=== PATIENT | male | born 1960 | race Caucasian/White ===

== ENCOUNTER 2021-05-19 10:46 | Inpatient (IN) ==
[~2021-05-19 10:46] MED LIST: ATROPINE 1 MG/10 ML SYRINGE ONE
[2021-05-19] MEDS ORDERED: SODIUM CHLORIDE 0.9% 1,000 ML IV STA (10:48)
[2021-05-19] MEDS ORDERED: EPINEPHrine 1 MG/10 ML SYRINGE IV STA (10:52)
[2021-05-19] MEDS ORDERED: ETOMIDATE 20 MG/10 ML VIAL IV STA (10:54)
[2021-05-19] MEDS ORDERED: ETOMIDATE 20 MG/10 ML VIAL IV ONE (10:54)
[2021-05-19] MEDS ORDERED: ROCURONIUM 100 MG/10 ML VIAL IV STA (10:54)
[2021-05-19] MEDS ORDERED: ROCURONIUM 100 MG/10 ML VIAL IV ONE (10:55)
[2021-05-19 11:14] LABS: Hematocrit 32.2 VOL% (42.0-52.0); Lymphocytes # 0.1 10*3/uL (1.4-4.0); Lymphocytes % 2.1 % (21.2-54.2); Mean Corpuscular HGB Conc 34.2 GM/DL (32-36); Mean Platelet Volume 13.2 FL (9.6-12.0); Monocytes % 2.9 % (1.7-12.7); NRBC # 0.03 10*3/uL; Platelet Count 57 T/CUMM (130-400); Red Blood Count 3.54 MC/CUMM (3.8-5.5); Red Cell Distribution Width 14.7 % (9.3-17.3); White Blood Count 2.8 T/CUMM (4-12)
[2021-05-19] MEDS ORDERED: SODIUM BICARBONATE 50 MEQ/50 ML VIAL IV STA ×2 (11:14→11:35)
[2021-05-19 11:21] LABS: ABG Base Excess -2.3 MMOL/L (-2.5-2.5); ABG HCO3 22.3 MMOL/L (20-26); ABG Oxygen Saturation 86.8 % (95-100); ABG PCO2 66.2 MM HG (35-48); ABG PH 7.218 (7.35-7.45); ABG PO2 68.3 MM HG (80-95); ABG TCO2 24.9 MMOL/L (23-27)
[2021-05-19] MEDS ORDERED: NOREPINEPHRINE 4 MG/4 ML VIAL IV ONE ×2 (11:22→15:15)
[2021-05-19 11:26] LABS: INR 1.2; PT Patient Result 13.1 SECS (10.5-12.0); Partial Thromboplastin Time 39.4 SECS (23.8-32.1)
[2021-05-19] MEDS: NOREPINEPHRINE 8 MG in SODIUM CHLORIDE 0.9% 242 ML IV PRN (11:30)
[2021-05-19] MEDS ORDERED: ATROPINE 1 MG/10 ML SYRINGE IV STA (11:37)
[2021-05-19 11:39] LABS: Albumin 2.7 G/DL (3.4-5.0); Bilirubin,Total 0.4 MG/DL (0.20-1.00); Calcium 8.6 MG/DL (8.5-10.1); Osmolality,Calculated 261.4 MOS/KG (273-304); Potassium 3.9 MMOL/L (3.5-5.1); Thyroid Stimulating Hormone 1.03 uIU/ml (0.358-3.74); Total Protein 5.8 G/DL (6.4-8.2)
[2021-05-19 11:51] LABS: Band Neutrophils 6 % (0-10); Lymphocytes 2 % (20-55); Platelet Estimate Decreased; Schistocytes Slight; Segmented Neutrophils 86 % (50-85); Total Cells Counted 100
[2021-05-19 11:52] LABS: Acanthocytes Few; Polychromasia Slight
[2021-05-19 11:53] LABS: Anisocytosis 1+
[2021-05-19] MEDS ORDERED: ALBUTEROL 2.5 MG/3 ML NEB RESP TX PRN (12:02)
[2021-05-19] MEDS ORDERED: NOREPINEPHRINE 8 MG in SODIUM CHLORIDE 0.9% 242 ML IV PRN (12:03)
[2021-05-19] MEDS ORDERED: MORPHINE 2 MG/1 ML SYRINGE IV PRN (12:03)
[2021-05-19] MEDS ORDERED: cefTRIAXone 1,000 MG in SODIUM CHLORIDE 0.9% 100 ML IV STA (12:05)
[2021-05-19] MEDS ORDERED: AZITHROMYCIN INJ 500 MG in SODIUM CHLORIDE 0.9% 250 ML IV STA (12:05)
[2021-05-19] MEDS ORDERED: methylPREDNISolone SOD SUC 125 MG/2 ML VIAL IV STA (12:05)
[2021-05-19 12:07] LABS: Bilirubin,Urine Negative (Negative); Blood, Urine Negative (Negative); Glucose,Urine (UA) Negative (Negative); Ketones,Urine 5 mg/dL (Negative); Mucus,Urine Occasional /LPF (Occasional); Nitrite,Urine Negative (Negative); Protein,Urine Negative; RBC,Urine 2 /HPF (0-4); Urine Appearance CLEAR (Clear); Urine Color Yellow (Yellow); Urine Specific Gravity 1.018 (1.001-1.035); Urine Urobilinogen < 2.0 EU/DL (0.2-1.0)
[2021-05-19] MEDS: ENOXAPARIN 40 MG/0.4 ML SYRINGE SUBCUT SCH (12:30)
[2021-05-19 12:44] LABS: Barbiturates Screen,Urine Negative (Negative); Benzodiazepines Screen,Urine Negative (Negative); Cannabinoid Screen,Urine Negative (Negative); Opiate Screen,Urine Negative (Negative); Phencyclidine Screen,Urine Negative (Negative)
[2021-05-19] MEDS: SODIUM CHLORIDE 0.9% 1,000 ML IV SCH ×2 (12:50→19:01)
[2021-05-19 14:40] LABS: ABG Base Excess 1.4 MMOL/L (-2.5-2.5); ABG HCO3 25.5 MMOL/L (20-26); ABG Oxygen Saturation 89.2 % (95-100); ABG PCO2 47.2 MM HG (35-48); ABG PH 7.369 (7.35-7.45); ABG PO2 61.9 MM HG (80-95); ABG TCO2 24.7 MMOL/L (23-27); Allen Test Positive; Pt O2 Delivery Device Ventilator
[2021-05-19] MEDS ORDERED: INFLUENZA VIRUS VACCINE 0.5 ML SYRINGE IM ONE (14:53)
[2021-05-19] MEDS: NOREPINEPHRINE 16 MG in SODIUM CHLORIDE 0.9% 234 ML IV PRN ×2 (15:25→20:10)
[2021-05-19] MEDS: CLINDAMYCIN INJ 600 MG/50 ML PREMIX IV SCH (16:04)
[2021-05-19] MEDS ORDERED: SODIUM CHLORIDE 0.9% 500 ML IV ONE (18:21)
[2021-05-19] MEDS ORDERED: VASOPRESSIN 100 UNITS in SODIUM CHLORIDE 0.9% 95 ML IV PRN (18:21)
[2021-05-19] MEDS: ALBUTEROL/IPRATROPIUM 3 ML NEB RESP TX SCH ×2 (18:41→23:53)
[2021-05-19] MEDS: methylPREDNISolone SOD SUC 40 MG/1 ML VIAL IV SCH (21:23)
[2021-05-20] MEDS ORDERED: SODIUM CHLORIDE 0.9% 500 ML IV ONE (00:35)
[2021-05-20] MEDS: CLINDAMYCIN INJ 600 MG/50 ML PREMIX IV SCH ×3 (00:42→15:57)
[2021-05-20] MEDS: NOREPINEPHRINE 16 MG in SODIUM CHLORIDE 0.9% 234 ML IV PRN ×6 (00:43→23:14)
[2021-05-20] MEDS: ALBUTEROL/IPRATROPIUM 3 ML NEB RESP TX SCH ×4 (01:00→19:00)
[2021-05-20] MEDS: SODIUM CHLORIDE 0.9% 1,000 ML IV SCH ×2 (03:34→12:05)
[2021-05-20 03:41] LABS: ABG Base Excess 4.5 MMOL/L (-2.5-2.5); ABG HCO3 28.5 MMOL/L (20-26); ABG Oxygen Saturation 99.5 % (95-100); ABG PH 7.463 (7.35-7.45); ABG TCO2 25.7 MMOL/L (23-27)
[2021-05-20] MEDS: methylPREDNISolone SOD SUC 40 MG/1 ML VIAL IV SCH ×3 (04:14→20:53)
[2021-05-20 04:43] LABS: Albumin 2.1 G/DL (3.4-5.0); Bilirubin,Total 0.4 MG/DL (0.20-1.00); Calcium 7.3 MG/DL (8.5-10.1); Osmolality,Calculated 261.4 MOS/KG (273-304); Potassium 5.2 MMOL/L (3.5-5.1); Total Protein 5.2 G/DL (6.4-8.2)
[2021-05-20] MEDS ORDERED: DEXTROSE 50% 25 GM/50 ML SYRINGE IV ONE (04:46)
[2021-05-20] MEDS: DEXTROSE 50% 25 GM/50 ML SYRINGE IV PRN ×2 (04:47→06:30)
[2021-05-20 04:56] LABS: Basophils % 0.3 % (0.0-0.8); Hematocrit 29.4 VOL% (42.0-52.0); Hemoglobin 10.4 GM/DL (14.0-18.0); Immature Granulocytes % 0.4 %; Immature Granulocytes Absolute 0.04 #; Lymphocytes % 0.2 % (21.2-54.2); Mean Corpuscular HGB Conc 35.4 GM/DL (32-36); Mean Corpuscular Volume 90.5 FL (87-102); Mean Platelet Volume 13.4 FL (9.6-12.0); Monocytes % 2.5 % (1.7-12.7); NRBC # 0.07 10*3/uL; Neutrophils % 96.6 % (38.7-73.9); Platelet Count 56 T/CUMM (130-400); Red Blood Count 3.25 MC/CUMM (3.8-5.5); Red Cell Distribution Width 14.9 % (9.3-17.3); White Blood Count 9.6 T/CUMM (4-12)
[2021-05-20] MEDS ORDERED: GLUCAGON 1 MG VIAL IM PRN (05:02)
[2021-05-20] MEDS ORDERED: MAGNESIUM SULF RIDER 4 GM/100 ML PREMIX IV PRN (05:04)
[2021-05-20] MEDS ORDERED: MAGNESIUM SULF RIDER 2 GM/50 ML PREMIX IV PRN (05:04)
[2021-05-20] MEDS: MIDAZOLAM 100 MG in SODIUM CHLORIDE 0.9% 80 ML IV PRN (05:14)
[2021-05-20 05:30] LABS: Band Neutrophils 4 % (0-10); Lymphocytes 7 % (20-55); Nucleated Red Blood Cells 3 (0-5); Segmented Neutrophils 82 % (50-85); Total Cells Counted 100
[2021-05-20 05:31] LABS: Platelet Estimate Decreased
[2021-05-20] MEDS ORDERED: SODIUM CHLORIDE 0.9% 1,000 ML IV ONE (07:17)
[2021-05-20] MEDS ORDERED: SODIUM POLYSTYRENE SULFATE 15 GM/60 ML BOTTLE PO ONE (08:06)
[2021-05-20] MEDS ORDERED: PANTOPRAZOLE 40 MG TABLET PO SCH (09:00)
[2021-05-20] MEDS ORDERED: PANTOPRAZOLE 40 MG VIAL IV SCH (09:30)
[2021-05-20] MEDS: ENOXAPARIN 40 MG/0.4 ML SYRINGE SUBCUT SCH (12:04)
[2021-05-20] MEDS: AZITHROMYCIN INJ 250 MG in SODIUM CHLORIDE 0.9% 250 ML IV SCH (12:04)
[2021-05-20] MEDS: cefTRIAXone 1,000 MG in SODIUM CHLORIDE 0.9% 100 ML IV SCH (13:00)
[2021-05-20] MEDS: DEXTROSE 5% NACL 0.9% 1,000 ML IV SCH ×2 (13:52→21:24)
[2021-05-20 15:00] LABS: Calcium 7.3 MG/DL (8.5-10.1); Osmolality,Calculated 268.9 MOS/KG (273-304); Potassium 4.9 MMOL/L (3.5-5.1)
[2021-05-20] MEDS: DOCUSATE SODIUM 100 MG/10 ML UDCUP PO SCH (20:49)
[2021-05-21] MEDS: CLINDAMYCIN INJ 600 MG/50 ML PREMIX IV SCH ×2 (00:18→07:56)
[2021-05-21] MEDS: ALBUTEROL/IPRATROPIUM 3 ML NEB RESP TX SCH ×4 (01:01→19:00)
[2021-05-21 03:49] LABS: Basophils % 0.1 % (0.0-0.8); Hematocrit 24.2 VOL% (42.0-52.0); Hemoglobin 8.3 GM/DL (14.0-18.0); Immature Granulocytes % 1.4 %; Lymphocytes % 0.2 % (21.2-54.2); Mean Corpuscular HGB Conc 34.3 GM/DL (32-36); Mean Corpuscular Volume 91.3 FL (87-102); Mean Platelet Volume 13.2 FL (9.6-12.0); NRBC # 0.11 10*3/uL; Neutrophils % 96.3 % (38.7-73.9); Red Blood Count 2.65 MC/CUMM (3.8-5.5); Red Cell Distribution Width 15.9 % (9.3-17.3); White Blood Count 20.8 T/CUMM (4-12)
[2021-05-21 03:51] LABS: Platelet Count 37 T/CUMM (130-400)
[2021-05-21] MEDS: methylPREDNISolone SOD SUC 40 MG/1 ML VIAL IV SCH (03:55)
[2021-05-21 04:08] LABS: Band Neutrophils 1 % (0-10); Lymphocytes 1 % (20-55); Nucleated Red Blood Cells 2 (0-5); Platelet Estimate Decreased; Segmented Neutrophils 95 % (50-85); Total Cells Counted 100
[2021-05-21 04:09] LABS: Albumin 1.8 G/DL (3.4-5.0); Bilirubin,Total 0.4 MG/DL (0.20-1.00); Calcium 7.4 MG/DL (8.5-10.1); Osmolality,Calculated 272.8 MOS/KG (273-304); Potassium 4.2 MMOL/L (3.5-5.1); Total Protein 5.1 G/DL (6.4-8.2)
[2021-05-21 04:13] LABS: ABG HCO3 24.2 MMOL/L (20-26); ABG Oxygen Saturation 98.1 % (95-100); ABG PCO2 28.8 MM HG (35-48); ABG PH 7.542 (7.35-7.45); ABG PO2 120.2 MM HG (80-95); ABG TCO2 25.1 MMOL/L (23-27)
[2021-05-21] MEDS: DEXTROSE 5% NACL 0.9% 1,000 ML IV SCH ×3 (05:50→21:54)
[2021-05-21] MEDS: LEVOTHYROXINE 25 MCG TABLET PO SCH (05:52)
[2021-05-21] MEDS: PANTOPRAZOLE 40 MG VIAL IV SCH ×3 (07:55→20:35)
[2021-05-21] MEDS: POLYETHYLENE GLYCOL POWDER 17 GM PACK PO SCH (08:14)
[2021-05-21] MEDS ORDERED: SKIN HEALING OINT (AQUAPHOR) 50 GM TUBE TOP PRN (09:12)
[2021-05-21] MEDS: NOREPINEPHRINE 16 MG in SODIUM CHLORIDE 0.9% 234 ML IV PRN (09:42)
[2021-05-21 10:53] LABS: HIV Antigen/Antibody Result Nonreactive (Nonreactive)
[2021-05-21] MEDS: VANCOMYCIN INJ 1,000 MG in SODIUM CHLORIDE 0.9% 250 ML IV SCH ×2 (11:00→22:11)
[2021-05-21] MEDS: AZITHROMYCIN INJ 250 MG in SODIUM CHLORIDE 0.9% 250 ML IV SCH (12:29)
[2021-05-21] MEDS: cefTRIAXone 1,000 MG in SODIUM CHLORIDE 0.9% 100 ML IV SCH (12:29)
[2021-05-21 12:53] LABS: ABG HCO3 25.3 MMOL/L (20-26); ABG Oxygen Saturation 96.5 % (95-100); ABG PCO2 34.7 MM HG (35-48); ABG PH 7.459 (7.35-7.45); ABG PO2 85.2 MM HG (80-95); ABG TCO2 22.9 MMOL/L (23-27); Pt O2 Delivery Device Ventilator
[2021-05-21] MEDS: POLYVINYL ALCOHOL 1.4% OPH SOLN 15 ML BOTTLE BOTH EYES PRN (13:13)
[2021-05-21] MEDS ORDERED: SODIUM CHLORIDE 0.9% 500 ML IV ONE (14:18)
[2021-05-21] MEDS ORDERED: ALBUMIN 5% 25 GM/500 ML VIAL IV ONE (14:18)
[2021-05-21 17:04] LABS: Basophils % 0.1 % (0.0-0.8); Hematocrit 19.7 VOL% (42.0-52.0); Hemoglobin 6.7 GM/DL (14.0-18.0); Immature Granulocytes % 0.8 %; Immature Granulocytes Absolute 0.12 #; Lymphocytes # 0.1 10*3/uL (1.4-4.0); Lymphocytes % 0.5 % (21.2-54.2); Mean Corpuscular Volume 93.4 FL (87-102); Mean Platelet Volume 13.6 FL (9.6-12.0); NRBC # 0.06 10*3/uL; Neutrophils % 96.6 % (38.7-73.9); Red Blood Count 2.11 MC/CUMM (3.8-5.5); Red Cell Distribution Width 15.8 % (9.3-17.3); White Blood Count 15.5 T/CUMM (4-12)
[2021-05-21 17:07] LABS: Platelet Count 17 T/CUMM (130-400)
[2021-05-21] MEDS ORDERED: SODIUM CHLORIDE 0.9% 1,000 ML IV PRN ×2 (17:10→17:12)
[2021-05-21 17:44] LABS: Band Neutrophils 18 % (0-10); Lymphocytes 4 % (20-55); Metamyelocytes 2 %; Platelet Estimate Decreased; Segmented Neutrophils 74 % (50-85); Total Cells Counted 100
[2021-05-21 17:48] LABS: PT Patient Result 11.4 SECS (10.5-12.0)
[2021-05-21] MEDS: DOCUSATE SODIUM 100 MG/10 ML UDCUP PO SCH (20:36)
[2021-05-22] MEDS: ALBUTEROL/IPRATROPIUM 3 ML NEB RESP TX SCH ×4 (01:00→19:00)
[2021-05-22 03:49] LABS: Basophils % 0.2 % (0.0-0.8); Hematocrit 25.7 VOL% (42.0-52.0); Hemoglobin 8.7 GM/DL (14.0-18.0); Immature Granulocytes % 0.6 %; Immature Granulocytes Absolute 0.09 #; Lymphocytes # 0.1 10*3/uL (1.4-4.0); Lymphocytes % 0.8 % (21.2-54.2); Mean Corpuscular HGB Conc 33.9 GM/DL (32-36); Mean Corpuscular Volume 91.5 FL (87-102); Mean Platelet Volume 12.5 FL (9.6-12.0); Monocytes % 2.3 % (1.7-12.7); NRBC # 0.06 10*3/uL; Neutrophils % 96.1 % (38.7-73.9); Red Blood Count 2.81 MC/CUMM (3.8-5.5); Red Cell Distribution Width 16.5 % (9.3-17.3); White Blood Count 14.5 T/CUMM (4-12)
[2021-05-22 03:51] LABS: ABG Base Excess 0.4 MMOL/L (-2.5-2.5); ABG HCO3 24.2 MMOL/L (20-26); ABG Oxygen Saturation 85.6 % (95-100); ABG PCO2 35.8 MM HG (35-48); ABG PH 7.448 (7.35-7.45); ABG PO2 50.8 MM HG (80-95); ABG TCO2 25.3 MMOL/L (23-27); Platelet Count 31 T/CUMM (130-400)
[2021-05-22 04:06] LABS: Bilirubin,Total 0.5 MG/DL (0.20-1.00); Calcium 7.9 MG/DL (8.5-10.1); Osmolality,Calculated 277.1 MOS/KG (273-304); Potassium 3.5 MMOL/L (3.5-5.1); Total Protein 5.1 G/DL (6.4-8.2)
[2021-05-22 04:14] LABS: Lymphocytes 2 % (20-55); Segmented Neutrophils 93 % (50-85); Total Cells Counted 100
[2021-05-22 04:15] LABS: Hypochromasia 2+; Platelet Estimate Decreased
[2021-05-22 04:22] LABS: ABG Base Excess 0.4 MMOL/L (-2.5-2.5); ABG HCO3 24.8 MMOL/L (20-26); ABG Oxygen Saturation 99.5 % (95-100); ABG PH 7.456 (7.35-7.45); ABG TCO2 21.9 MMOL/L (23-27)
[2021-05-22] MEDS: MIDAZOLAM 100 MG in SODIUM CHLORIDE 0.9% 80 ML IV PRN (05:18)
[2021-05-22] MEDS: DEXTROSE 5% NACL 0.9% 1,000 ML IV SCH ×4 (05:23→16:44)
[2021-05-22] MEDS: POTASSIUM CHLORIDE RIDER 20 MEQ/100 ML PREMIX IV PRN (05:57)
[2021-05-22] MEDS: LEVOTHYROXINE 25 MCG TABLET PO SCH (06:00)
[2021-05-22] MEDS: POTASSIUM CHLORIDE RIDER 10 MEQ/100 ML PREMIX IV PRN (08:20)
[2021-05-22] MEDS: POLYETHYLENE GLYCOL POWDER 17 GM PACK PO SCH (09:37)
[2021-05-22] MEDS: PANTOPRAZOLE 40 MG VIAL IV SCH ×2 (09:37→21:20)
[2021-05-22] MEDS: VANCOMYCIN INJ 1,000 MG in SODIUM CHLORIDE 0.9% 250 ML IV SCH (11:20)
[2021-05-22] MEDS: LACTULOSE 20 GM/30 ML UDCUP PO SCH ×6 (11:20→21:20)
[2021-05-22 11:47] LABS: Basophils % 0.1 % (0.0-0.8); Hematocrit 24.7 VOL% (42.0-52.0); Hemoglobin 8.1 GM/DL (14.0-18.0); Immature Granulocytes % 0.6 %; Immature Granulocytes Absolute 0.08 #; Lymphocytes # 0.2 10*3/uL (1.4-4.0); Lymphocytes % 1.8 % (21.2-54.2); Mean Corpuscular HGB Conc 32.8 GM/DL (32-36); Mean Corpuscular Volume 91.8 FL (87-102); Mean Platelet Volume 12.5 FL (9.6-12.0); Monocytes % 2.5 % (1.7-12.7); NRBC # 0.03 10*3/uL; Red Blood Count 2.69 MC/CUMM (3.8-5.5); Red Cell Distribution Width 16.6 % (9.3-17.3)
[2021-05-22 11:49] LABS: Platelet Count 29 T/CUMM (130-400)
[2021-05-22 12:03] LABS: Hepatitis B Core IgM Quant 0.19 Index; Hepatitis B Surface Ag Quant < 0.10 Index; Hepatitis B Surface Ag Result Non-Reactive (NonReactive); Hepatitis C Virus Ab Quant > 11.00 Index
[2021-05-22 12:04] LABS: Hepatitis C Virus Ab Result Reactive (NonReactive)
[2021-05-22 12:07] LABS: Band Neutrophils 32 % (0-10); Folate 9.07 NG/ML (5.38-24.0); Lymphocytes 2 % (20-55); Platelet Estimate Decreased; Segmented Neutrophils 66 % (50-85); Total Cells Counted 100
[2021-05-22 12:08] LABS: Anisocytosis 2+; Burr Cells Few
[2021-05-22 12:09] LABS: Macrocytosis Slight
[2021-05-22] MEDS: cefTRIAXone 1,000 MG in SODIUM CHLORIDE 0.9% 100 ML IV SCH (12:20)
[2021-05-22] MEDS: AZITHROMYCIN INJ 250 MG in SODIUM CHLORIDE 0.9% 250 ML IV SCH (14:08)
[2021-05-22] MEDS ORDERED: SODIUM CHLORIDE 0.9% 1,000 ML IV PRN (15:10)
[2021-05-22 18:05] LABS: Hematocrit 24.7 VOL% (42.0-52.0)
[2021-05-22] MEDS: DOCUSATE SODIUM 100 MG/10 ML UDCUP PO SCH (21:20)
[2021-05-22] MEDS: DEXTROSE 50% 25 GM/50 ML SYRINGE IV PRN (22:28)
[2021-05-23] MEDS: LACTULOSE 20 GM/30 ML UDCUP PO SCH ×5 (00:29→08:13)
[2021-05-23] MEDS: VANCOMYCIN INJ 1,000 MG in SODIUM CHLORIDE 0.9% 250 ML IV SCH ×4 (00:30→23:06)
[2021-05-23] MEDS: ALBUTEROL/IPRATROPIUM 3 ML NEB RESP TX SCH ×4 (01:00→19:00)
[2021-05-23 03:38] LABS: ABG Base Excess -1.8 MMOL/L (-2.5-2.5); ABG HCO3 21.9 MMOL/L (20-26); ABG Oxygen Saturation 97.2 % (95-100); ABG PCO2 32.9 MM HG (35-48); ABG PH 7.442 (7.35-7.45); ABG PO2 100.1 MM HG (80-95)
[2021-05-23] MEDS: DEXTROSE 5% NACL 0.9% 1,000 ML IV SCH ×3 (04:09→17:21)
[2021-05-23 04:39] LABS: Basophils % 0.1 % (0.0-0.8); Eosinophils % 0.1 % (0.00-10.9); Hematocrit 25.5 VOL% (42.0-52.0); Hemoglobin 8.1 GM/DL (14.0-18.0); Immature Granulocytes % 0.5 %; Immature Granulocytes Absolute 0.06 #; Lymphocytes # 0.3 10*3/uL (1.4-4.0); Lymphocytes % 2.6 % (21.2-54.2); Mean Corpuscular HGB Conc 31.8 GM/DL (32-36); Mean Corpuscular Volume 95.5 FL (87-102); Mean Platelet Volume 10.7 FL (9.6-12.0); Neutrophils % 93.7 % (38.7-73.9); Platelet Count 43 T/CUMM (130-400); Red Blood Count 2.67 MC/CUMM (3.8-5.5); Red Cell Distribution Width 17.2 % (9.3-17.3); White Blood Count 11.8 T/CUMM (4-12)
[2021-05-23 04:57] LABS: Albumin 1.9 G/DL (3.4-5.0); Bilirubin,Total 0.6 MG/DL (0.20-1.00); Calcium 8.3 MG/DL (8.5-10.1); Osmolality,Calculated 288.8 MOS/KG (273-304); Potassium 3.2 MMOL/L (3.5-5.1); Total Protein 5.2 G/DL (6.4-8.2)
[2021-05-23 05:04] LABS: Acanthocytes Few; Hypochromasia Slight; Microcytosis 1+; Ovalocytes Slight; Platelet Estimate Decreased
[2021-05-23] MEDS: POTASSIUM CHLORIDE RIDER 20 MEQ/100 ML PREMIX IV PRN ×2 (05:55→08:15)
[2021-05-23] MEDS: LEVOTHYROXINE 25 MCG TABLET PO SCH (05:56)
[2021-05-23] MEDS: PANTOPRAZOLE 40 MG VIAL IV SCH ×2 (08:14→20:51)
[2021-05-23] MEDS: POLYETHYLENE GLYCOL POWDER 17 GM PACK PO SCH (08:14)
[2021-05-23 08:37] LABS: Hematocrit 25.2 VOL% (42.0-52.0)
[2021-05-23] MEDS: MIDAZOLAM 100 MG in SODIUM CHLORIDE 0.9% 80 ML IV PRN (14:26)
[2021-05-23] MEDS: cefTRIAXone 1,000 MG in SODIUM CHLORIDE 0.9% 100 ML IV SCH (14:36)
[2021-05-23] MEDS: AZITHROMYCIN INJ 250 MG in SODIUM CHLORIDE 0.9% 250 ML IV SCH (15:49)
[2021-05-23] MEDS ORDERED: HALOPERIDOL DECANOATE 50 MG/1 ML VIAL IM SCH (20:00)
[2021-05-23] MEDS: DOCUSATE SODIUM 100 MG/10 ML UDCUP PO SCH (20:51)
[2021-05-23] MEDS: DIVALPROEX ER 500 MG TABLET PO SCH ×2 (20:57→21:20)
[2021-05-23] MEDS: VALPROIC ACID 250 MG/5 ML UDCUP PO SCH (22:58)
[2021-05-24] MEDS: ALBUTEROL/IPRATROPIUM 3 ML NEB RESP TX SCH ×4 (02:32→20:00)
[2021-05-24] MEDS: DEXTROSE 5% NACL 0.9% 1,000 ML IV SCH ×3 (02:58→21:22)
[2021-05-24 03:45] LABS: Basophils % 0.1 % (0.0-0.8); Eosinophils % 0.4 % (0.00-10.9); Hematocrit 25.8 VOL% (42.0-52.0); Immature Granulocytes % 0.9 %; Immature Granulocytes Absolute 0.07 #; Lymphocytes # 0.4 10*3/uL (1.4-4.0); Lymphocytes % 4.7 % (21.2-54.2); Mean Corpuscular Volume 97.4 FL (87-102); Mean Platelet Volume 11.7 FL (9.6-12.0); Monocytes % 5.1 % (1.7-12.7); Neutrophils % 88.8 % (38.7-73.9); Red Blood Count 2.65 MC/CUMM (3.8-5.5); Red Cell Distribution Width 16.7 % (9.3-17.3); White Blood Count 7.8 T/CUMM (4-12)
[2021-05-24 03:45] LABS: ABG Base Excess -1.2 MMOL/L (-2.5-2.5); ABG HCO3 23.4 MMOL/L (20-26); ABG Oxygen Saturation 98.8 % (95-100); ABG PCO2 36.2 MM HG (35-48); ABG PH 7.411 (7.35-7.45); ABG TCO2 21.4 MMOL/L (23-27)
[2021-05-24 03:47] LABS: Platelet Count 31 T/CUMM (130-400)
[2021-05-24 04:02] LABS: Albumin 1.9 G/DL (3.4-5.0); Bilirubin,Total 0.5 MG/DL (0.20-1.00); Calcium 7.8 MG/DL (8.5-10.1); Osmolality,Calculated 282.3 MOS/KG (273-304); Potassium 2.7 MMOL/L (3.5-5.1); Total Protein 5.2 G/DL (6.4-8.2)
[2021-05-24 04:13] LABS: Burr Cells Few; Hypochromasia 2+; Platelet Estimate Decreased
[2021-05-24] MEDS: NOREPINEPHRINE 8 MG in SODIUM CHLORIDE 0.9% 242 ML IV PRN (04:15)
[2021-05-24] MEDS: POTASSIUM CHLORIDE RIDER 20 MEQ/100 ML PREMIX IV PRN ×4 (05:19→19:04)
[2021-05-24] MEDS: LEVOTHYROXINE 25 MCG TABLET PO SCH (07:16)
[2021-05-24] MEDS: VANCOMYCIN INJ 1,000 MG in SODIUM CHLORIDE 0.9% 250 ML IV SCH ×2 (08:05→15:39)
[2021-05-24] MEDS: POLYETHYLENE GLYCOL POWDER 17 GM PACK PO SCH (08:07)
[2021-05-24] MEDS: PANTOPRAZOLE 40 MG VIAL IV SCH (08:09)
[2021-05-24] MEDS: VALPROIC ACID 250 MG/5 ML UDCUP PO SCH ×4 (08:09→21:18)
[2021-05-24] MEDS: POTASSIUM CHLORIDE RIDER 10 MEQ/100 ML PREMIX IV PRN (09:24)
[2021-05-24] MEDS: cefTRIAXone 1,000 MG in SODIUM CHLORIDE 0.9% 100 ML IV SCH (11:32)
[2021-05-24] MEDS: POLYVINYL ALCOHOL 1.4% OPH SOLN 15 ML BOTTLE BOTH EYES PRN (11:33)
[2021-05-24] MEDS ORDERED: ZINC OXIDE PASTE 113 GM TUBE TOP PRN (14:32)
[2021-05-24] MEDS: AZITHROMYCIN INJ 250 MG in SODIUM CHLORIDE 0.9% 250 ML IV SCH (15:38)
[2021-05-24] MEDS: DOCUSATE SODIUM 100 MG/10 ML UDCUP PO SCH (21:18)
[2021-05-24] MEDS: FAMOTIDINE 8 MG/ML 50 ML/BOTTLE PO SCH (21:19)
[2021-05-25] MEDS: ALBUTEROL/IPRATROPIUM 3 ML NEB RESP TX SCH ×4 (00:10→19:58)
[2021-05-25] MEDS: VANCOMYCIN INJ 1,000 MG in SODIUM CHLORIDE 0.9% 250 ML IV SCH ×3 (00:45→16:08)
[2021-05-25] MEDS: MIDAZOLAM 100 MG in SODIUM CHLORIDE 0.9% 80 ML IV PRN (01:05)
[2021-05-25 04:08] LABS: ABG Base Excess 3.2 MMOL/L (-2.5-2.5); ABG HCO3 27.3 MMOL/L (20-26); ABG Oxygen Saturation 98.7 % (95-100); ABG PCO2 36.3 MM HG (35-48); ABG PH 7.476 (7.35-7.45); ABG TCO2 24.6 MMOL/L (23-27)
[2021-05-25] MEDS: LEVOTHYROXINE 25 MCG TABLET PO SCH (06:26)
[2021-05-25 06:45] LABS: Eosinophils # 0.1 10*3/uL (0.0-0.87); Eosinophils % 1.3 % (0.00-10.9); Hematocrit 23.3 VOL% (42.0-52.0); Hemoglobin 7.5 GM/DL (14.0-18.0); Immature Granulocytes % 0.4 %; Immature Granulocytes Absolute 0.02 #; Lymphocytes # 0.4 10*3/uL (1.4-4.0); Lymphocytes % 9.8 % (21.2-54.2); Mean Corpuscular HGB Conc 32.2 GM/DL (32-36); Mean Corpuscular Volume 95.9 FL (87-102); Mean Platelet Volume 10.4 FL (9.6-12.0); Monocytes % 8.9 % (1.7-12.7); Neutrophils % 79.6 % (38.7-73.9); Platelet Count 46 T/CUMM (130-400); Red Blood Count 2.43 MC/CUMM (3.8-5.5); Red Cell Distribution Width 16.3 % (9.3-17.3); White Blood Count 4.5 T/CUMM (4-12)
[2021-05-25 07:17] LABS: Hypochromasia 1+; Platelet Estimate Decreased
[2021-05-25] MEDS: DEXTROSE 5% NACL 0.9% 1,000 ML IV SCH (08:42)
[2021-05-25] MEDS: POLYETHYLENE GLYCOL POWDER 17 GM PACK PO SCH (08:45)
[2021-05-25] MEDS: VALPROIC ACID 250 MG/5 ML UDCUP PO SCH ×4 (08:45→20:46)
[2021-05-25] MEDS: FAMOTIDINE 8 MG/ML 50 ML/BOTTLE PO SCH ×2 (08:45→20:46)
[2021-05-25 09:48] LABS: Albumin 1.7 G/DL (3.4-5.0); Bilirubin,Total 1.6 MG/DL (0.20-1.00); Osmolality,Calculated 281.3 MOS/KG (273-304); Potassium 3.9 MMOL/L (3.5-5.1); Total Protein 5.2 G/DL (6.4-8.2)
[2021-05-25] MEDS: FUROSEMIDE 40 MG/4 ML VIAL IV SCH ×2 (09:50→16:08)
[2021-05-25 11:56] LABS: M. Tuberculosis PCR Result Negative (Negative); M. Tuberculosis PCR Source SPUTUM
[2021-05-25] MEDS: cefTRIAXone 1,000 MG in SODIUM CHLORIDE 0.9% 100 ML IV SCH (12:12)
[2021-05-25] MEDS: AZITHROMYCIN INJ 250 MG in SODIUM CHLORIDE 0.9% 250 ML IV SCH (14:04)
[2021-05-25] MEDS: DOCUSATE SODIUM 100 MG/10 ML UDCUP PO SCH (20:45)
[2021-05-25] MEDS ORDERED: FUROSEMIDE 40 MG/4 ML VIAL IV SCH (23:00)
[2021-05-26] MEDS: ALBUTEROL/IPRATROPIUM 3 ML NEB RESP TX SCH ×4 (01:00→19:00)
[2021-05-26 04:22] LABS: ABG Base Excess 7.6 MMOL/L (-2.5-2.5); ABG Oxygen Saturation 96.7 % (95-100); ABG PCO2 38.7 MM HG (35-48); ABG PH 7.521 (7.35-7.45); ABG PO2 88.7 MM HG (80-95); ABG TCO2 32.2 MMOL/L (23-27)
[2021-05-26 04:32] LABS: Basophils % 0.2 % (0.0-0.8); Eosinophils # 0.1 10*3/uL (0.0-0.87); Hematocrit 26.1 VOL% (42.0-52.0); Hemoglobin 8.5 GM/DL (14.0-18.0); Immature Granulocytes % 0.4 %; Immature Granulocytes Absolute 0.02 #; Lymphocytes # 0.5 10*3/uL (1.4-4.0); Lymphocytes % 10.3 % (21.2-54.2); Mean Corpuscular HGB Conc 32.6 GM/DL (32-36); Mean Corpuscular Volume 94.6 FL (87-102); Mean Platelet Volume 11.1 FL (9.6-12.0); Monocytes % 11.1 % (1.7-12.7); Platelet Count 44 T/CUMM (130-400); Red Blood Count 2.76 MC/CUMM (3.8-5.5); Red Cell Distribution Width 15.9 % (9.3-17.3); White Blood Count 4.9 T/CUMM (4-12)
[2021-05-26] MEDS: VANCOMYCIN INJ 1,250 MG in SODIUM CHLORIDE 0.9% 250 ML IV SCH ×2 (04:35→15:16)
[2021-05-26 04:52] LABS: Albumin 1.8 G/DL (3.4-5.0); Bilirubin,Total 0.5 MG/DL (0.20-1.00); Calcium 8.2 MG/DL (8.5-10.1); Osmolality,Calculated 272.1 MOS/KG (273-304); Potassium 3.7 MMOL/L (3.5-5.1); Total Protein 5.4 G/DL (6.4-8.2)
[2021-05-26 05:08] LABS: Hypochromasia 2+
[2021-05-26] MEDS: LEVOTHYROXINE 25 MCG TABLET PO SCH (05:48)
[2021-05-26] MEDS: NOREPINEPHRINE 8 MG in SODIUM CHLORIDE 0.9% 242 ML IV PRN ×2 (05:49→19:00)
[2021-05-26] MEDS: FUROSEMIDE 40 MG/4 ML VIAL IV SCH ×2 (08:55→16:05)
[2021-05-26] MEDS: POLYETHYLENE GLYCOL POWDER 17 GM PACK PO SCH (09:08)
[2021-05-26] MEDS: VALPROIC ACID 250 MG/5 ML UDCUP PO SCH ×4 (09:08→20:58)
[2021-05-26] MEDS: FAMOTIDINE 8 MG/ML 50 ML/BOTTLE PO SCH ×2 (09:09→20:58)
[2021-05-26] MEDS: MIDAZOLAM 100 MG in SODIUM CHLORIDE 0.9% 80 ML IV PRN (11:13)
[2021-05-26] MEDS: cefTRIAXone 1,000 MG in SODIUM CHLORIDE 0.9% 100 ML IV SCH (12:11)
[2021-05-26] MEDS: AZITHROMYCIN INJ 250 MG in SODIUM CHLORIDE 0.9% 250 ML IV SCH (14:39)
[2021-05-26] MEDS: ALBUMIN 25% 12.5 GM/50 ML VIAL IV SCH ×2 (15:21→20:59)
[2021-05-26] MEDS: DOCUSATE SODIUM 100 MG/10 ML UDCUP PO SCH (20:58)
[2021-05-27] MEDS: ALBUTEROL/IPRATROPIUM 3 ML NEB RESP TX SCH ×4 (01:48→19:15)
[2021-05-27 03:00] LABS: ABG Base Excess 5.3 MMOL/L (-2.5-2.5); ABG HCO3 29.2 MMOL/L (20-26); ABG Oxygen Saturation 96.9 % (95-100); ABG PCO2 37.6 MM HG (35-48); ABG PH 7.493 (7.35-7.45); ABG PO2 85.3 MM HG (80-95); ABG TCO2 26.8 MMOL/L (23-27)
[2021-05-27] MEDS: VANCOMYCIN INJ 1,250 MG in SODIUM CHLORIDE 0.9% 250 ML IV SCH ×3 (03:40→16:34)
[2021-05-27 03:59] LABS: Basophils % 0.2 % (0.0-0.8); Eosinophils % 0.8 % (0.00-10.9); Hematocrit 24.4 VOL% (42.0-52.0); Immature Granulocytes % 0.6 %; Immature Granulocytes Absolute 0.03 #; Lymphocytes # 0.4 10*3/uL (1.4-4.0); Lymphocytes % 7.6 % (21.2-54.2); Mean Corpuscular HGB Conc 32.8 GM/DL (32-36); Mean Corpuscular Volume 93.8 FL (87-102); Mean Platelet Volume 11.4 FL (9.6-12.0); Monocytes % 9.5 % (1.7-12.7); Neutrophils % 81.3 % (38.7-73.9); Platelet Count 45 T/CUMM (130-400); Red Cell Distribution Width 15.5 % (9.3-17.3); White Blood Count 5.3 T/CUMM (4-12)
[2021-05-27 04:24] LABS: Calcium 7.8 MG/DL (8.5-10.1); Osmolality,Calculated 269.4 MOS/KG (273-304); Potassium 4.3 MMOL/L (3.5-5.1)
[2021-05-27] MEDS: LEVOTHYROXINE 25 MCG TABLET PO SCH (05:51)
[2021-05-27] MEDS ORDERED: LIDOCAINE 1% 20 ML VIAL MISC INJ ONE (07:23)
[2021-05-27] MEDS: VALPROIC ACID 250 MG/5 ML UDCUP PO SCH ×4 (08:13→21:53)
[2021-05-27] MEDS: FAMOTIDINE 8 MG/ML 50 ML/BOTTLE PO SCH ×2 (08:13→21:53)
[2021-05-27] MEDS: ALBUMIN 25% 12.5 GM/50 ML VIAL IV SCH ×2 (08:13→21:59)
[2021-05-27] MEDS: FUROSEMIDE 40 MG/4 ML VIAL IV SCH ×2 (08:14→16:18)
[2021-05-27] MEDS: POLYETHYLENE GLYCOL POWDER 17 GM PACK PO SCH (08:14)
[2021-05-27 11:21] LABS: QuantiFERON-Tb Gold Pl Indeterminate (Negative); TB2 Ag Minus Result 0 IU/mL
[2021-05-27] MEDS: cefTRIAXone 1,000 MG in SODIUM CHLORIDE 0.9% 100 ML IV SCH (12:13)
[2021-05-27] MEDS: NOREPINEPHRINE 8 MG in SODIUM CHLORIDE 0.9% 242 ML IV PRN (17:50)
[2021-05-27] MEDS: DOCUSATE SODIUM 100 MG/10 ML UDCUP PO SCH (21:52)
[2021-05-27] MEDS: MIDAZOLAM 100 MG in SODIUM CHLORIDE 0.9% 80 ML IV PRN (22:53)
[2021-05-28] MEDS: ALBUTEROL/IPRATROPIUM 3 ML NEB RESP TX SCH ×4 (01:13→19:25)
[2021-05-28] MEDS: VANCOMYCIN INJ 1,250 MG in SODIUM CHLORIDE 0.9% 250 ML IV SCH ×2 (03:55→16:39)
[2021-05-28 04:15] LABS: ABG Base Excess 6.4 MMOL/L (-2.5-2.5); ABG HCO3 30.3 MMOL/L (20-26); ABG Oxygen Saturation 97.8 % (95-100); ABG PCO2 40.1 MM HG (35-48); ABG PH 7.486 (7.35-7.45); ABG PO2 95.6 MM HG (80-95); ABG TCO2 28.2 MMOL/L (23-27)
[2021-05-28 04:25] LABS: Eosinophils # 0.1 10*3/uL (0.0-0.87); Eosinophils % 0.9 % (0.00-10.9); Hematocrit 25.3 VOL% (42.0-52.0); Hemoglobin 8.2 GM/DL (14.0-18.0); Immature Granulocytes % 0.4 %; Immature Granulocytes Absolute 0.02 #; Lymphocytes # 0.5 10*3/uL (1.4-4.0); Lymphocytes % 9.2 % (21.2-54.2); Mean Corpuscular HGB Conc 32.4 GM/DL (32-36); Mean Corpuscular Volume 93.7 FL (87-102); Mean Platelet Volume 11.4 FL (9.6-12.0); Monocytes % 11.4 % (1.7-12.7); Neutrophils % 78.1 % (38.7-73.9); Platelet Count 69 T/CUMM (130-400); Red Cell Distribution Width 15.4 % (9.3-17.3); White Blood Count 5.5 T/CUMM (4-12)
[2021-05-28 04:40] LABS: Osmolality,Calculated 273.1 MOS/KG (273-304); Potassium 4.6 MMOL/L (3.5-5.1)
[2021-05-28 04:43] LABS: Hypochromasia 1+
[2021-05-28 04:44] LABS: Microcytosis Slight; Platelet Estimate Decreased
[2021-05-28] MEDS: LEVOTHYROXINE 25 MCG TABLET PO SCH (05:57)
[2021-05-28] MEDS: FAMOTIDINE 8 MG/ML 50 ML/BOTTLE PO SCH ×2 (08:21→20:48)
[2021-05-28] MEDS: ALBUMIN 25% 12.5 GM/50 ML VIAL IV SCH ×2 (08:21→21:46)
[2021-05-28] MEDS: VALPROIC ACID 250 MG/5 ML UDCUP PO SCH ×4 (08:21→20:48)
[2021-05-28] MEDS: FUROSEMIDE 40 MG/4 ML VIAL IV SCH ×2 (08:21→16:06)
[2021-05-28] MEDS: POLYETHYLENE GLYCOL POWDER 17 GM PACK PO SCH (08:21)
[2021-05-28] MEDS: cefTRIAXone 1,000 MG in SODIUM CHLORIDE 0.9% 100 ML IV SCH (12:56)
[2021-05-28] MEDS: DOCUSATE SODIUM 100 MG/10 ML UDCUP PO SCH (20:48)
[2021-05-29] MEDS: ALBUTEROL/IPRATROPIUM 3 ML NEB RESP TX SCH ×4 (01:15→20:45)
[2021-05-29] MEDS: VANCOMYCIN INJ 1,250 MG in SODIUM CHLORIDE 0.9% 250 ML IV SCH ×2 (03:25→16:47)
[2021-05-29 03:30] LABS: ABG Base Excess 7.3 MMOL/L (-2.5-2.5); ABG HCO3 31.3 MMOL/L (20-26); ABG Oxygen Saturation 97.3 % (95-100); ABG PCO2 42.2 MM HG (35-48); ABG PH 7.488 (7.35-7.45); ABG PO2 98.5 MM HG (80-95); ABG TCO2 32.6 MMOL/L (23-27)
[2021-05-29 05:23] LABS: Basophils % 0.1 % (0.0-0.8); Eosinophils # 0.1 10*3/uL (0.0-0.87); Eosinophils % 0.9 % (0.00-10.9); Hematocrit 26.1 VOL% (42.0-52.0); Hemoglobin 8.5 GM/DL (14.0-18.0); Immature Granulocytes % 0.7 %; Immature Granulocytes Absolute 0.05 #; Lymphocytes # 0.6 10*3/uL (1.4-4.0); Lymphocytes % 8.7 % (21.2-54.2); Mean Corpuscular HGB Conc 32.6 GM/DL (32-36); Mean Corpuscular Volume 94.2 FL (87-102); Mean Platelet Volume 10.8 FL (9.6-12.0); Monocytes % 10.2 % (1.7-12.7); Neutrophils % 79.4 % (38.7-73.9); Platelet Count 108 T/CUMM (130-400); Red Blood Count 2.77 MC/CUMM (3.8-5.5); Red Cell Distribution Width 14.9 % (9.3-17.3); White Blood Count 7.1 T/CUMM (4-12)
[2021-05-29 05:40] LABS: Osmolality,Calculated 265.5 MOS/KG (273-304); Potassium 4.5 MMOL/L (3.5-5.1)
[2021-05-29 05:57] LABS: Hypochromasia 1+; Microcytosis 1+
[2021-05-29] MEDS: LEVOTHYROXINE 25 MCG TABLET PO SCH (06:11)
[2021-05-29] MEDS: NOREPINEPHRINE 8 MG in SODIUM CHLORIDE 0.9% 242 ML IV PRN (07:00)
[2021-05-29] MEDS: FAMOTIDINE 8 MG/ML 50 ML/BOTTLE PO SCH ×2 (08:08→22:21)
[2021-05-29] MEDS: POLYETHYLENE GLYCOL POWDER 17 GM PACK PO SCH (08:08)
[2021-05-29] MEDS: VALPROIC ACID 250 MG/5 ML UDCUP PO SCH ×4 (08:08→22:20)
[2021-05-29] MEDS: FUROSEMIDE 40 MG/4 ML VIAL IV SCH ×2 (08:10→16:47)
[2021-05-29] MEDS: MIDAZOLAM 100 MG in SODIUM CHLORIDE 0.9% 80 ML IV PRN (08:20)
[2021-05-29] MEDS: cefTRIAXone 1,000 MG in SODIUM CHLORIDE 0.9% 100 ML IV SCH (14:59)
[2021-05-29] MEDS ORDERED: ROCURONIUM 50 MG/5 ML VIAL IV ONE (16:58)
[2021-05-29] MEDS ORDERED: MIDAZOLAM 2 MG/2 ML VIAL ONE (16:58)
[2021-05-29] MEDS ORDERED: ePHEDrine 50 MG/ML VIAL ONE (17:29)
[2021-05-29 18:50] VITALS: BP 120/78
[2021-05-29] MEDS: DOCUSATE SODIUM 100 MG/10 ML UDCUP PO SCH (22:20)
[2021-05-30] MEDS: NOREPINEPHRINE 8 MG in SODIUM CHLORIDE 0.9% 242 ML IV PRN ×2 (01:21→23:59)
[2021-05-30] MEDS: ALBUTEROL/IPRATROPIUM 3 ML NEB RESP TX SCH ×4 (01:52→19:00)
[2021-05-30] MEDS: VANCOMYCIN INJ 1,250 MG in SODIUM CHLORIDE 0.9% 250 ML IV SCH (03:24)
[2021-05-30 04:15] LABS: ABG Base Excess 7.1 MMOL/L (-2.5-2.5); ABG HCO3 30.8 MMOL/L (20-26); ABG Oxygen Saturation 89.8 % (95-100); ABG PCO2 39.2 MM HG (35-48); ABG PH 7.503 (7.35-7.45); ABG PO2 57.6 MM HG (80-95); ABG TCO2 28.3 MMOL/L (23-27)
[2021-05-30 05:17] LABS: Albumin 2.6 G/DL (3.4-5.0); Bilirubin,Direct 0.21 MG/DL (0.0-0.20); Bilirubin,Indirect 1.1 MG/DL (0.0-1.0); Bilirubin,Total 1.3 MG/DL (0.20-1.00); Total Protein 7.1 G/DL (6.4-8.2)
[2021-05-30] MEDS: LEVOTHYROXINE 25 MCG TABLET PO SCH (05:40)
[2021-05-30 06:24] LABS: Calcium 8.9 MG/DL (8.5-10.1); Osmolality,Calculated 266.9 MOS/KG (273-304); Potassium 4.3 MMOL/L (3.5-5.1)
[2021-05-30] MEDS: FUROSEMIDE 40 MG/4 ML VIAL IV SCH (07:50)
[2021-05-30] MEDS: VALPROIC ACID 250 MG/5 ML UDCUP PO SCH ×4 (08:00→20:54)
[2021-05-30] MEDS: POLYETHYLENE GLYCOL POWDER 17 GM PACK PO SCH (08:01)
[2021-05-30] MEDS: FAMOTIDINE 8 MG/ML 50 ML/BOTTLE PO SCH ×2 (08:01→20:54)
[2021-05-30] MEDS ORDERED: ACETAMINOPHEN 325 MG TABLET PO PRN (08:03)
[2021-05-30] MEDS: MIDAZOLAM 100 MG in SODIUM CHLORIDE 0.9% 80 ML IV PRN (10:25)
[2021-05-30 11:27] LABS: Bacteria,Urine Occasional /HPF (Few); Bilirubin,Urine Negative (Negative); Blood, Urine Moderate mg/dL (Negative); Glucose,Urine (UA) Negative (Negative); Ketones,Urine Negative (Negative); Mucus,Urine Occasional /LPF (Occasional); Nitrite,Urine Negative (Negative); Protein,Urine Negative; RBC,Urine 4 /HPF (0-4); Squamous Epithelial Cell,Urine Occasional /HPF (0-10); Urine Appearance Slightly Hazy (Clear); Urine Color Yellow (Yellow); Urine Specific Gravity 1.014 (1.001-1.035); Urine Urobilinogen < 2.0 EU/DL (0.2-1.0)
[2021-05-30] MEDS: LINEZOLID INJ 600 MG/300 ML PREMIX IV SCH ×2 (11:50→23:37)
[2021-05-30] MEDS: cefTRIAXone 1,000 MG in SODIUM CHLORIDE 0.9% 100 ML IV SCH (11:51)
[2021-05-30 13:47] LABS: ABG HCO3 31.8 MMOL/L (20-26); ABG Oxygen Saturation 92.8 % (95-100); ABG PCO2 44.9 MM HG (35-48); ABG TCO2 30.1 MMOL/L (23-27); Allen Test Positive; Pt O2 Delivery Device Ventilator
[2021-05-30] MEDS: DOCUSATE SODIUM 100 MG/10 ML UDCUP PO SCH (20:54)
[2021-05-31] MEDS: ALBUTEROL/IPRATROPIUM 3 ML NEB RESP TX SCH ×4 (01:00→19:00)
[2021-05-31 04:13] LABS: Basophils % 0.2 % (0.0-0.8); Eosinophils % 0.7 % (0.00-10.9); Hematocrit 25.5 VOL% (42.0-52.0); Hemoglobin 8.4 GM/DL (14.0-18.0); Immature Granulocytes % 0.2 %; Immature Granulocytes Absolute 0.01 #; Lymphocytes # 0.6 10*3/uL (1.4-4.0); Lymphocytes % 14.6 % (21.2-54.2); Mean Corpuscular HGB Conc 32.9 GM/DL (32-36); Mean Corpuscular Volume 93.8 FL (87-102); Monocytes % 19.8 % (1.7-12.7); Neutrophils % 64.5 % (38.7-73.9); Platelet Count 197 T/CUMM (130-400); Red Blood Count 2.72 MC/CUMM (3.8-5.5); Red Cell Distribution Width 15.1 % (9.3-17.3); White Blood Count 4.3 T/CUMM (4-12)
[2021-05-31 04:33] LABS: ABG Base Excess 7.7 MMOL/L (-2.5-2.5); ABG HCO3 31.5 MMOL/L (20-26); ABG Oxygen Saturation 98.9 % (95-100); ABG PCO2 44.2 MM HG (35-48); ABG PH 7.471 (7.35-7.45); ABG TCO2 29.8 MMOL/L (23-27)
[2021-05-31 04:34] LABS: INR 1.2; PT Patient Result 13.2 SECS (10.5-12.0)
[2021-05-31 04:35] LABS: Hypochromasia 1+; Lymphocytes 14 % (20-55); Microcytosis 1+; Platelet Estimate Adequate; Segmented Neutrophils 69 % (50-85); Total Cells Counted 100
[2021-05-31 04:38] LABS: Albumin 2.6 G/DL (3.4-5.0); Bilirubin,Total 0.5 MG/DL (0.20-1.00); Calcium 8.9 MG/DL (8.5-10.1); Osmolality,Calculated 271.4 MOS/KG (273-304); Potassium 3.7 MMOL/L (3.5-5.1); Total Protein 7.2 G/DL (6.4-8.2)
[2021-05-31] MEDS: LEVOTHYROXINE 25 MCG TABLET PO SCH (05:57)
[2021-05-31] MEDS: VALPROIC ACID 250 MG/5 ML UDCUP PO SCH ×4 (09:07→21:18)
[2021-05-31] MEDS: FAMOTIDINE 8 MG/ML 50 ML/BOTTLE PO SCH ×2 (09:08→21:25)
[2021-05-31] MEDS: POLYETHYLENE GLYCOL POWDER 17 GM PACK PO SCH (09:08)
[2021-05-31] MEDS ORDERED: LACTATED RINGERS 1,000 ML IV ONE (09:23)
[2021-05-31] MEDS: LINEZOLID INJ 600 MG/300 ML PREMIX IV SCH (11:58)
[2021-05-31] MEDS: cefTRIAXone 1,000 MG in SODIUM CHLORIDE 0.9% 100 ML IV SCH (11:59)
[2021-05-31] MEDS: DOCUSATE SODIUM 100 MG/10 ML UDCUP PO SCH (21:26)
[2021-06-01] MEDS: LINEZOLID INJ 600 MG/300 ML PREMIX IV SCH ×3 (00:07→23:50)
[2021-06-01] MEDS: ALBUTEROL/IPRATROPIUM 3 ML NEB RESP TX SCH ×4 (00:43→19:00)
[2021-06-01 04:39] LABS: Basophils % 0.3 % (0.0-0.8); Eosinophils % 0.3 % (0.00-10.9); Hematocrit 26.1 VOL% (42.0-52.0); Hemoglobin 8.5 GM/DL (14.0-18.0); Immature Granulocytes % 0.3 %; Immature Granulocytes Absolute 0.01 #; Lymphocytes # 0.4 10*3/uL (1.4-4.0); Lymphocytes % 12.1 % (21.2-54.2); Mean Corpuscular HGB Conc 32.6 GM/DL (32-36); Mean Corpuscular Volume 94.6 FL (87-102); Monocytes % 18.6 % (1.7-12.7); Neutrophils % 68.4 % (38.7-73.9); Platelet Count 242 T/CUMM (130-400); Red Blood Count 2.76 MC/CUMM (3.8-5.5); Red Cell Distribution Width 15.2 % (9.3-17.3); White Blood Count 3.7 T/CUMM (4-12)
[2021-06-01 04:47] LABS: Albumin 2.5 G/DL (3.4-5.0); Bilirubin,Total 0.5 MG/DL (0.20-1.00); Calcium 8.8 MG/DL (8.5-10.1); Potassium 3.8 MMOL/L (3.5-5.1); Total Protein 7.3 G/DL (6.4-8.2)
[2021-06-01 05:01] LABS: Hypochromasia 1+; Lymphocytes 11 % (20-55); Microcytosis 1+; Platelet Estimate Adequate; Segmented Neutrophils 77 % (50-85); Total Cells Counted 100
[2021-06-01] MEDS: LEVOTHYROXINE 25 MCG TABLET PO SCH (05:43)
[2021-06-01] MEDS ORDERED: POLYETHYLENE GLYCOL POWDER 17 GM PACK PO PRN (08:47)
[2021-06-01] MEDS: ENOXAPARIN 40 MG/0.4 ML SYRINGE SUBCUT SCH (09:06)
[2021-06-01] MEDS: VALPROIC ACID 250 MG/5 ML UDCUP PO SCH ×4 (09:06→21:27)
[2021-06-01] MEDS: FAMOTIDINE 8 MG/ML 50 ML/BOTTLE PO SCH (09:06)
[2021-06-01] MEDS: ASPIRIN EC 81 MG TABLET PO SCH (12:01)
[2021-06-01] MEDS: cefTRIAXone 1,000 MG in SODIUM CHLORIDE 0.9% 100 ML IV SCH (13:19)
[2021-06-01] MEDS ORDERED: SIMVASTATIN 10 MG TABLET PO SCH (21:00)
[2021-06-01] MEDS: DOCUSATE SODIUM 100 MG/10 ML UDCUP PO SCH (21:17)
[2021-06-02] MEDS: ALBUTEROL/IPRATROPIUM 3 ML NEB RESP TX SCH ×2 (01:00→08:04)
[2021-06-02 05:27] LABS: Basophils % 1.2 % (0.0-0.8); Eosinophils % 1.2 % (0.00-10.9); Hematocrit 26.4 VOL% (42.0-52.0); Hemoglobin 8.5 GM/DL (14.0-18.0); Lymphocytes # 0.7 10*3/uL (1.4-4.0); Lymphocytes % 26.4 % (21.2-54.2); Mean Corpuscular HGB Conc 32.2 GM/DL (32-36); Mean Corpuscular Volume 95.7 FL (87-102); Mean Platelet Volume 10.2 FL (9.6-12.0); Monocytes % 21.1 % (1.7-12.7); Neutrophils % 50.1 % (38.7-73.9); Platelet Count 253 T/CUMM (130-400); Red Blood Count 2.76 MC/CUMM (3.8-5.5); White Blood Count 2.5 T/CUMM (4-12)
[2021-06-02 05:51] LABS: Eosinophils 1 % (0-10); Hypochromasia Slight; Lymphocytes 21 % (20-55); Platelet Estimate Normal; Segmented Neutrophils 58 % (50-85); Total Cells Counted 100
[2021-06-02 05:53] LABS: Calcium 8.5 MG/DL (8.5-10.1); Osmolality,Calculated 276.7 MOS/KG (273-304); Potassium 3.7 MMOL/L (3.5-5.1)
[2021-06-02] MEDS: LEVOTHYROXINE 25 MCG TABLET PO SCH (06:57)
[2021-06-02] MEDS: VALPROIC ACID 250 MG/5 ML UDCUP PO SCH (08:46)
[2021-06-02] MEDS: DEXTROSE 50% 25 GM/50 ML SYRINGE IV PRN (08:47)
[2021-06-02] MEDS: ENOXAPARIN 40 MG/0.4 ML SYRINGE SUBCUT SCH (08:48)
[2021-06-02] MEDS: ASPIRIN EC 81 MG TABLET PO SCH (09:06)
[2021-06-02] MEDS ORDERED: INFLUENZA VIRUS VACCINE 0.5 ML SYRINGE IM ONE (11:00)
[2021-06-03 12:10] LABS: QuantiFERON-Tb Gold Pl Negative (Negative); TB2 Ag Minus Result 0 IU/mL
== END 2021-06-02 11:50 | DRG 853 ==
LOC: N.ED 10:46 → N.EDINP 12:02 → SUATTDRO 12:02 → N.CC 12:36
PROVIDERS: ADMIT Family Medicine; ATTEND Family Medicine